=== PATIENT | male | born 1970 | race African-American/Black ===

== ENCOUNTER 2016-09-28 20:11 | Emergency (ER) | payer OTHER ==
[~2016-09-28 20:11] MED LIST: CORTIS10A LEFT EAR; IBUP800T23 PO
[2016-09-28 20:13] VITALS: BP 170/96; PULSE 71; RESP 16; TEMP 97.9; O2SAT 99
--- NOTE | 2016-09-28 21:13 | PD ---
HPI Chief Complaint: Back/ Neck Pain or Injury Time Seen by Provider: 21:09 Travel History International Travel<30 days: No Contact w/Intl Traveler<30days: No Traveled to known affect area: No History of Present Illness HPI Patient comes in complaining of low back and right rib pain after slip and fall getting out of the shower this morning. Patient states he landed on his back and injured his ribs. Denies hitting his head or loss of consciousness. Patient took a Lortab that someone gave him this morning that helped some, but continues to have pain. Patient's pain is sharp and aching pain that is worse with certain movement and deep inspiration. Patient denies any fevers, loss or change in bowel or bladder, numbness or tingling anywhere, chest pain, shortness of breath, abdominal pain, headache, dizziness, fevers, IV drug use, or history of IV drug use. 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) Diminished Hearing: No Past Surgical History Abdominal Surgery: Yes (HERNIA REPAIR) Social History Alcohol Use: Yes (CLAIMS TO HAVE QUIT 04/2014) Tobacco Use: Yes (03/07 PPD) Substance Use: No Allergies-Medications (Allergen,Severity, Reaction): Coded Allergies: No Known Allergies (Unverified , 09/28/16) Reported Meds & Prescriptions Reported Meds & Active Scripts Active Flexeril (Cyclobenzaprine HCl) 10 Mg Tab 10 Mg PO Q8HR PRN Naprosyn (Naproxen) 500 Mg Tab 500 Mg PO Q12HR PRN Cortisporin Otic Suspension (Neomycin/Polymyxin/Hydrocortisone) 10 Ml Susp 4 Drop LEFT EAR QID 7 Days Reported Ibuprofen 800 Mg Tab 800 Mg PO Q6H PRN Review of Systems Except as stated in HPI: all other systems reviewed are Neg Physical Exam Narrative GENERAL: Well-developed, well nourished, in no acute distress, and non-ill appearing. SKIN: Focused skin assessment warm and dry. No ecchymosis or traumatic lesions noted over the right rib cage or low back. HEAD: Atraumatic. Normocephalic. EYES: Pupils equal and round. EOMI. No scleral icterus. No injection or drainage. ENT: No nasal bleeding or discharge. Mucous membranes pink and moist. NECK: Trachea midline. Supple. No nuclear rigidity. CARDIOVASCULAR: Regular rate and rhythm. No murmur appreciated. RESPIRATORY: No accessory muscle use. No respiratory distress. Clear to auscultation. Breath sounds equal bilaterally. Patient reports tenderness to palpation right lateral rib cage. There is no crepitus or step-off. GASTROINTESTINAL: Abdomen soft, non-tender, nondistended, and no guarding. Hepatic and splenic margins not palpable. No pulsatile mass. MUSCULOSKELETAL: No obvious deformities. No clubbing. No cyanosis. No edema. Full range of motion. Patient reports tenderness to palpation right lateral lumbar muscles. There is no tenderness or crepitus over midline of the lumbar spine. Straight leg test positive on the right. Hip: FROM and equal BL with passive flexion, extension, Abduction, Adduction, and internal/external rotation. Pulses equal BL distal to injury. Capillary refill less than 2 seconds distal to injury and equal BL. FROM distal to injury and equal BL. Strength distal to injury equal BL. NV intact distal to injury and equal BL. Plantar flexion and dorsal flexion equal BL. Dorsal pulses equal BL. Sensation equal BL 1st web space. NEUROLOGICAL: Awake and alert. No obvious cranial nerve deficits. Motor grossly within normal limits. Normal speech. PSYCHIATRIC: Appropriate mood and affect; insight and judgment normal. Data Data Last Documented VS Vital Signs Date Time Temp Pulse Resp B/P Pulse Ox O2 Delivery O2 Flow Rate FiO2 09/28/16 20:13 97.9 71 16 170/96 99 Room Air Orders Cyclobenzaprine (Flexeril) (09/28/16 21:15) Naproxen (Naprosyn) (09/28/16 21:15) Acetamin-Hydrocod 325-5 Mg ([place] 5-325 (09/28/16 21:15) Spine, Lumbar - Ltd (Ap & Lat) (09/28/16 ) Ribs, Uni (W/Exp Cxr-Min 3vw) (09/28/16 ) Resp Incentive Spirometry (09/28/16 ) MDM Medical Decision Making Medical Screen Exam Complete: Yes Emergency Medical Condition: Yes Interpretation(s) Lumbar x-ray read by the radiologist shows: Minimal degenerative changes otherwise unremarkable limited examination of the lumbar spine. Minimal sclerosis of the SI joints Rib series read by the radiologist shows: No acute disease. Differential Diagnosis Fracture, strain, contusion, pneumothorax, other Narrative Course Patient presents with apparent back strain. The patient presented complaining of back pain. There was history of preceding trauma. X-rays were obtained and no obvious fracture or acute disease was noted at this time. The patient has no neurological complaints. The patient has been behaving normally and no notable altered mental status. Arena score of 15The patients neurological exam is normal with normal motor and sensory. There is no saddle paresthesias reported and no bowel or bladder incontinence or retention. . The patients evaluation was consistent with soft tissue injury and not consistent with bony injury. Clinical suspicion, plan of care and management was discussed with the patient. The patient was instructed to follow up with their health care provider. The patient was also instructed to return if the pain worsened, changed, or developed weakness or bowel or bladder trouble. The patient agreed with plan. There was no evidence to support genitourinary etiology. There is also no evidence to suggest vascular pathology such as AAA dissection. No fevers or other evidence to suspect infectious processes, abscess etc. The patient suffered a minor chest wall contusion. There is no clinical evidence to suggest intrathoracic injury nor cardiac injury at this time. The patient has no significant pain, shortness of breath or dyspnea. The patient moves air well without difficulty and is clear to auscultation. Heart sounds are audible without rubs, murmurs or gallops. There is no palpable creptius. Pulses are symmetrical and strong. There is no significant tenderness over the lower chest to suggest injury to the liver nor spleen. Chest X-ray was normal without evidence of fracture, pneumothorax or hemothorax. The Mediastinum appeared within normal limits. Diagnosis was discussed with the patient. The patient is to return if develops any worsening pain difficulty breathing, or if coughs up blood or develops fever. Patient agrees with plan and was recommended to follow up with their regular physician. Patient in no obvious distress upon re-evaluation. All pertinent Radiology result(s) discussed with patient. Patient was asked if they wanted to speak to my attending, which the patient did not wish to do at this time. Any questions/ concerns in reference to patient diagnosis/condition discussed and clarified prior to patient's discharge. Reinforced sheer importance of close follow up with patient's primary physician or primary care clinic. Instructed patient to return to ED immediately, if symptoms return/worsen. Pt showed understanding of above instructions. Further instructions and recommendations were detailed in discharge paperwork. Pt ambulated without difficulty out of ED at discharge. Diagnosis Primary Impression: Low back strain Qualified Code: S39.012A - Low back strain, initial encounter Additional Impression: Contusion of rib on right side Qualified Code: S20.211A - Contusion of rib on right side, initial encounter Referrals: [facility] [place] [facility] Patient Instructions: General Instructions, Low Back Strain (ED), Rib Contusion (ED) Additional Instructions: Follow-up with your primary care physician and/or orthopedics in 3-5 days for reevaluation. Take all medication as prescribed. Use incentive spirometer 10 times per hour as instructed Return to the emergency department if symptoms get worse.s Med/Other Pt SpecificInfo: Prescription(s) given Scripts Cyclobenzaprine (Flexeril)10 Mg Tab10 Mg PO Q8HR PRN (MUSCLE PAIN) #15 TAB Ref 0 Prov:Ken Bowser MD 09/28/16 Naproxen (Naprosyn)500 Mg [id number] Mg PO Q12HR PRN (PAIN SCALE 1 TO 10) #14 TAB Ref 0 Prov:Ken Bowser MD 09/28/16 Disposition: 01 DISCHARGE HOME Condition: Stable Bandar Bender Sep 28, 2016 21:13
[2016-09-28] MEDS ORDERED: CYCLOBENZAPRINE HCL 10 MG TAB PO ONE (21:15)
[2016-09-28] MEDS ORDERED: NAPROXEN 500 MG TAB PO ONE (21:15)
[2016-09-28] MEDS ORDERED: ACETAMINOPHEN/HYDROcodone 325 MG/5 MG TAB PO ONE (21:15)
--- NOTE | 2016-09-28 22:18 | RADRPT ---
EXAM DATE/TIME: 09/28/2016 22:09 [facility] COMPARISON: No previous studies available for comparison. INDICATIONS : Right rib pain after falling on tile floor tonight. MEDICAL HISTORY : None. SURGICAL HISTORY : None. ENCOUNTER: Initial ACUITY: 1 day PAIN SCORE: 6/10 LOCATION: Right chest FINDINGS: Multiple views of the right ribs were performed. There is no evidence of displaced fracture. No gera tructive lesions or areas of periosteal thickening are seen. Expiratory view of the chest is negativ e for pneumothorax. The mediastinal structures are midline. CONCLUSION: No acute disease. Zacarias Briggs MD on September 28, 2016 at 22:15 Board Certified Radiologist. This report was verified electronically.
--- NOTE | 2016-09-28 22:18 | RADRPT ---
EXAM DATE/TIME: 09/28/2016 22:13 [facility] COMPARISON: No previous studies available for comparison. INDICATIONS : Lower back pain after falling on tile floor tonight. MEDICAL HISTORY : None. SURGICAL HISTORY : None. ENCOUNTER: Initial ACUITY: 1 day PAIN SCORE: 8/10 LOCATION: Lumbar. FINDINGS: Two view examination was performed. There are five non-rib bearing vertebral bodies. The vertebral bodies are in normal alignment without evidence of subluxation or scoliosis. The disc spaces are tiffanie ntained. The pedicles are intact. Bony mineralization is normal. No fracture is identified. Tiny a nterior endplate osteophytes along the lower lumbar vertebral bodies. Minimal sclerosis of the SI chad nts. CONCLUSION: Minimal degenerative changes otherwise unremarkable limited examination of the lumbar spine. Minimal sclerosis of the SI joints. Zacarias Briggs MD on September 28, 2016 at 22:16 Board Certified Radiologist. This report was verified electronically.
[2016-09-28] MEDS ORDERED: CYCL1TAB29 PO (22:26)
[2016-09-28] MEDS ORDERED: NAPR500 PO (22:26)
== END 2016-09-28 22:38 | disposition home or self-care (01) ==
LOC: NEPK 20:11
DX: S39.012A Strain of muscle, fascia and tendon of lower back, initial encounter (principal); S20.211A Contusion of right front wall of thorax, initial encounter; I69.954 Hemiplegia and hemiparesis following unspecified cerebrovascular disease affecting left non-dominant side; F17.200 Nicotine dependence, unspecified, uncomplicated; Z79.899 Other long term (current) drug therapy; W18.2XXA Fall in (into) shower or empty bathtub, initial encounter
CPT/HCPCS: 71101; 72100; 99284

== ENCOUNTER 2016-10-26 17:48 | Emergency (ER) | payer OTHER ==
[~2016-10-26] VITALS: Ht 165.1 cm; Wt 90.7 kg
[~2016-10-26 17:48] MED LIST changes: +CYCL1TAB29 PO; +NAPR500 PO
[2016-10-26 18:13] VITALS: BP 135/78; PULSE 79; RESP 18; TEMP 98.6; O2SAT 97
[2016-10-26] MEDS ORDERED: ROBA500T PO (18:45)
[2016-10-26] MEDS ORDERED: MELO-1 PO (18:45)
--- NOTE | 2016-10-26 18:46 | PD ---
HPI Chief Complaint: Back/ Neck Pain or Injury Time Seen by Provider: 18:40 Travel History International Travel<30 days: No Contact w/Intl Traveler<30days: No Traveled to known affect area: No History of Present Illness HPI 46-year-old male with chief complaint of low back pain radiating down into the right leg. Patient reports pain onset 1 day. Denies specific injury. Reports similar pain in the past. Denies fever, chills, incontinence, saddle anesthesia, numbness/tingling/weakness of the lower cavities. Symptom severity mild/moderate. Pain scale 5/10 PFSH Past Medical History Medical History: Denies Significant Hx Cardiovascular Problems: No Cerebrovascular Accident: Yes Diminished Hearing: No Immunizations Current: No Tetanus Vaccination: < 5 Years Influenza Vaccination: No Past Surgical History Abdominal Surgery: Yes (HERNIA REPAIR) Family History Family Myocardial Infarction: Yes (MOTHER, FATHER) Social History Alcohol Use: No Tobacco Use: Yes (1/2) Substance Use: No Allergies-Medications (Allergen,Severity, Reaction): Coded Allergies: No Known Allergies (Unverified , 10/26/16) Reported Meds & Prescriptions Reported Meds & Active Scripts Active No Active Prescriptions or Reported Medications Review of Systems Except as stated in HPI: all other systems reviewed are Neg Neurologic: No: Weakness Physical Exam Narrative GENERAL: Well-nourished, well-developed patient. SKIN: Focused skin assessment warm/dry. HEAD: Normocephalic. EYES: No scleral icterus. No injection or drainage. NECK: Supple, trachea midline. No JVD or lymphadenopathy. CARDIOVASCULAR: Regular rate and rhythm without murmurs, gallops, or rubs. RESPIRATORY: Breath sounds equal bilaterally. No accessory muscle use. GASTROINTESTINAL: Abdomen soft, non-tender, nondistended. MUSCULOSKELETAL: No cyanosis, or edema. BACK: without obvious deformity. No CVA tenderness. No midline spinal tenderness. Bilateral paraspinous muscle tenderness in lumbar region. 5 out of 5 strength in lower extremity. Data Data Last Documented VS Vital Signs Date Time Temp Pulse Resp B/P (MAP) Pulse Ox O2 Delivery O2 Flow Rate FiO2 10/26/16 18:13 98.6 79 18 135/78 (97) 97 MDM Medical Decision Making Medical Screen Exam Complete: Yes Emergency Medical Condition: Yes Differential Diagnosis Lumbar strain, sciatica, herniated disc Narrative Course 46-year-old male with chief complaint of low back pain radiating down the right leg. Patient reports similar pain in the past. He denies specific injury. On exam patient has mild paraspinous muscle tenderness in the lumbar region. Positive straight leg raise. He has normal sensation, full range of motion, normal strength of the lower extremities. Patient be treated for sciatica. Diagnosis Primary Impression: Sciatica Qualified Codes: M54.31 - Sciatica, right side Referrals: Primary Care Physician Additional Instructions: Take the medications as prescribed. Avoid heavy lifting and strenuous activities. Follow-up with your Dr. Return to emergency department if he developed new or worsening symptoms. Scripts Methocarbamol (Robaxin) 500 Mg Tab 500 MG PO TID for Muscle Spasm, #15 TAB 0 Refills Prov: Amarilis Jarquin 10/26/16 Meloxicam (Meloxicam) 15 Mg Tab 15 MG PO DAILY for Arthritis Pain, #15 TAB 0 Refills Prov: Amarilis Jarquin 10/26/16 Disposition: 01 DISCHARGE HOME Condition: Stable Amarilis Jarquin Oct 26, 2016 18:46
[2016-10-26] MEDS ORDERED: KETOROLAC TROMETHAMINE 60 MG/2 ML (IM) VIAL IM ONE (19:00)
== END 2016-10-26 19:18 | disposition home or self-care (01) ==
LOC: PHEFT 17:48
DX: M54.41 Lumbago with sciatica, right side (principal); F17.210 Nicotine dependence, cigarettes, uncomplicated; Z86.73 Personal history of transient ischemic attack (TIA), and cerebral infarction without residual deficits
CPT/HCPCS: 99284; J1885

== ENCOUNTER 2017-05-18 05:42 | Emergency (ER) | payer OTHER ==
[~2017-05-18] VITALS: Ht 165.1 cm; Wt 65.0 kg
[~2017-05-18 05:42] MED LIST changes: -CORTIS10A LEFT EAR; -CYCL1TAB29 PO; -IBUP800T23 PO; +MELO15TA20 PO; -NAPR500 PO; +ROBA500T PO
[2017-05-18 05:50] VITALS: BP 126/76; PULSE 98; RESP 16; TEMP 98.2; O2SAT 96
[2017-05-18] MEDS ORDERED: HYDR-4107 (06:22)
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
[2017-05-18] MEDS ORDERED: TRAM50 PO (07:02)
[2017-05-18 07:23] VITALS: BP 132/74
== END 2017-05-18 07:24 | disposition home or self-care (01) ==
LOC: PHED 05:42
DX: S01.81XA Laceration without foreign body of other part of head, initial encounter (principal); S01.412A Laceration without foreign body of left cheek and temporomandibular area, initial encounter; X99.8XXA Assault by other sharp object, initial encounter; Z72.0 Tobacco use
CPT/HCPCS: 12016